=== PATIENT | male | born 1960 | race Caucasian/White ===

== ENCOUNTER → 2024-02-10 | Outpatient (CLI) | payer MEDICARE, SELFPAY ==
--- NOTE | 2024-02-10 07:30 | XR_ITS ---
Examination: Abdomen sonogram, complete Date and time of exam: February 10, 2024 0742 hours INDICATIONS: Onset 30 pound weight loss in one month. Technique: Multiple real-time grayscale transabdominal sonographic images of the abdomen have been obtained. Findings: Normal gallbladder Normal common bile duct 0.2 cm Pancreatic head 2.1 cm Aorta not enlarged Liver 14.2 cm fatty infiltration no focal liver lesions Normal hepatopedal portal venous flow Patent IVC Right kidney 11.6 x 5.2 x 6.5 cm cortex 2.1 cm Left kidney 10.9 x 4.3 x 4.9 cm cortex 1.7 cm Moderate renal parenchymal scar formation Upper pole solid appearing left renal mass 11 x 13 x 10 mm Spleen 11.3 cm IMPRESSION: Solid appearing upper pole left renal mass 11 x 13 x 10 mm, please see the MR abdomen report June 18, 2022 indicating 22 mm left adrenal mass, recommend repeat MRI abdomen follow-up pre and postcontrast
== END | disposition home or self-care (01) ==
PROVIDERS: PCP Family Medicine; Referring Provider Family Medicine; Visit Provider Family Medicine
DX: N28.89 Other specified disorders of kidney and ureter (principal); E27.8 Other specified disorders of adrenal gland
CPT/HCPCS: 76700